=== PATIENT | female | born 1990 | race Caucasian/White ===

== ENCOUNTER 2017-04-29 19:42 | Inpatient (IN) | payer OTHER, MEDICAID ==
[2017-04-29] MEDS ORDERED: Penicillin G 5 Million Unit Vial IVPB ONE (21:04)
[2017-04-29 21:14] VITALS: BMI 27.8
[2017-04-29] MEDS ORDERED: Lactated Ringer's 1,000 ML IV SCH (21:15)
[2017-04-29] MEDS ORDERED: Nalbuphine 20 mg/ml Inj (1 ml) IVP PRN (21:15)
[2017-04-29 21:40] LABS: BASO % 0.3 % (0.0-2.0); EOS # 0.2 K/uL (0.0-0.7); EOS % 1.6 % (0.0-4.0); LYMPH % 21.8 % (20.0-40.0); MEAN CELL VOLUME 77.9 fL (81.0-99.0); MEAN CORPUSCULAR HEMOGLOBIN 25.5 pg (27.0-31.0); MEAN CORPUSCULAR HGB CONC 32.7 g/dL (33.0-37.0); MEAN PLATELET VOLUME 8.5 fL (7.2-11.7); MONO # 1.5 K/uL (0.0-0.8); MONO % 10.8 % (0.0-10.0); NRBC % 0.1 % (0.0-2.0); RED CELL DISTRIBUTION WIDTH 14.7 % (11.5-14.5); WHITE BLOOD COUNT 13.8 K/uL (4.8-10.8)
[2017-04-29 21:47] LABS: CHLORIDE 103 mmol/L (98-107); SODIUM 138 mmol/L (132-148)
[2017-04-29 21:49] LABS: GFR AFRICAN-AMERICAN > 60
[2017-04-29 21:50] LABS: ALB/GLOB RATIO 1.2 (1.0-2.1); ALKALINE PHOSPHATASE 145 U/L (38-126); ALT/SGPT 27 U/L (9-52); AST/SGOT 24 U/L (14-36); BILIRUBIN,TOTAL 0.4 mg/dL (0.2-1.3); BLOOD UREA NITROGEN 6 mg/dL (7-17); CALCIUM 9.3 mg/dl (8.6-10.4); CARBON DIOXIDE 21 mmol/L (22-30); GLUCOSE,RANDOM 72 mg/dL (65-105); TOTAL PROTEIN 6.9 g/dL (6.3-8.3)
[2017-04-29 21:58] LABS: RBC URINE 3 /hpf (0-3); URINE BILIRUBIN NEGATIVE (NEGATIVE); URINE BLOOD 2+ (NEGATIVE); URINE COLOR Straw (YELLOW); URINE GLUCOSE (UA) NORMAL (Normal); URINE KETONE NEGATIVE (NEGATIVE); URINE LEUKOCYTE ESTERASE 1+ Leu/uL (Negative); URINE PROTEIN NEGATIVE (NEGATIVE); URINE UROBILINOGEN NORMAL mg/dL (0.2-1.0); WBC URINE 14 /hpf (0-5)
[2017-04-29] MEDS ORDERED: Oxytocin 20 units in LR 2,000 ML IV ONE (23:03)
[2017-04-29] MEDS ORDERED: Lidocaine 2% Inj (20ml) ONE (23:25)
[2017-04-29] MEDS ORDERED: Oxytocin 10 Units/ml Inj ONE (23:32)
[2017-04-29] MEDS ORDERED: Benzocaine/Menthol 20%-0.5% Topical Spray (60 ml) TOP PRN (23:49)
[2017-04-29] MEDS ORDERED: Oxycodone/Acetaminophen 5/325 mg Tab PO PRN ×2 (23:49)
[2017-04-30] MEDS ORDERED: Penicillin G Potassium 2.5 MU in Dextrose 5% In Water 50 ML IV SCH (01:00)
[2017-04-30 07:44] LABS: BASO # 0.1 K/uL (0.0-0.2); BASO % 0.4 % (0.0-2.0); EOS # 0.2 K/uL (0.0-0.7); EOS % 0.9 % (0.0-4.0); HEMATOCRIT 31.1 % (34.0-47.0); LYMPH % 11.9 % (20.0-40.0); MEAN CELL VOLUME 77.9 fL (81.0-99.0); MEAN CORPUSCULAR HEMOGLOBIN 25.6 pg (27.0-31.0); MEAN CORPUSCULAR HGB CONC 32.9 g/dL (33.0-37.0); MEAN PLATELET VOLUME 8.9 fL (7.2-11.7); MONO # 1.7 K/uL (0.0-0.8); MONO % 10.4 % (0.0-10.0); RED CELL DISTRIBUTION WIDTH 14.7 % (11.5-14.5); WHITE BLOOD COUNT 16.5 K/uL (4.8-10.8)
[2017-04-30] MEDS: Multiple Vitamins Tab PO SCH (09:39)
--- NOTE | 2017-04-30 12:01 | OBDS ---
DELIVERY PERSONNEL Nurse Manufacturing Job Titles Certified: N/A Delivery Doctor: Idania Wiseman MD Scrub Nurse: N/A Scenic Arts Supervisor: Michael Montana RN Anesthesiologist: N/A Disbursing Agent: N/A Resident: N/A MATERNAL INFORMATION Delivery Anesthesia: None Medications in Delivery: PITOCIN 20 UNITS IN 1L; METHERGINE 1 AMP IM Provider Comments: patient rapidly progressed to fully of a male infant from ED position.Body and shoulders delivered without difficulty Cord clamped and cut.Blood stained amniotic fluid noted cord blood collected. Placenta spontaneously delivered. Uterus noted to be boggy.Im methergine 0.2mg given after which uterus noted to firm up.First degre e perineal laceration repaired with 2-0 chromic.1000MCG cytotec placed rectally Fundus frm Bleeding average Patient stable apgars 9/9 at 1 and 5min of life LABOR SUMMARY EDC: 05/02/2017 00:00 No. Babies in Womb: 1 LABOR INFORMATION Group B Beta Strep: Positive (Annotations: 04/09/2017) MEMBRANES Membranes Rupture Method: Artificial Amniotic Fluid Color: Clear Amniotic Fluid Amount: Small STAGES OF LABOR Stage 3 hrs: 0 Stage 3 min: 3 VAGINAL DELIVERY Episiotomy: None Laceration Extension: First Degree Laceration Type: Perineal Laceration Repair: Yes Laceration Repair Note: first degree perineal laceration reapired with 2-0 chormic Initial Vag Sponge Count: 10+1 Final Vag Sponge Count: 10+1 Initial Vag Sharps Count: 1 Final Vag Sharps Count: 1 Sponge Count Correct: Yes; Vaginal Sweep Performed Sharps Count Correct: Yes Count Comment: ALL ACCOUNTED FOR BABY A INFORMATION Infant Delivery Date/Time: 04/29/2017 23:14 Method of Delivery: Vaginal Born in Route : No : N/A Forceps: N/A Vacuum Extraction: N/A Shoulder Dystocia : No SHOULDER DYSTOCIA BABY A Infant Delivery Date/Time: 04/29/2017 23:14 PRESENTATION/POSITION BABY A Presentation: Cephalic Cephalic Presentation: Vertex Vertex Position: Left Occipital Anterior Breech Presentation: N/A PLACENTA INFORMATION BABY A Placenta Delivery Time : 04/29/2017 23:17 Placenta Method of Delivery: Spontaneous Placenta Status: Delivered SCORES BABY A Heart Rate 1 min: >100 bpm Resp Effort 1 min: Good Cry Reflex Irritability 1 min: Cough or Sneeze or Pulls Away Muscle Tone 1 min: Active Motion Color 1 min: Body [place], Extremities Blue Resuscitation Effort 1 min: Tactile Stimulation SCORE 1 MIN: 9 Heart Rate 5 min: >100 bpm Resp Effort 5 min: Good Cry Reflex Irritability 5 min: Cough or Sneeze or Pulls Away Muscle Tone 5 min: Active Motion Color 5 min: Body [place], Extremities Blue Resuscitation Effort 5 min: Tactile Stimulation SCORE 5 MIN: 9 INFANT INFORMATION BABY A Gestational Age at Delivery: 39.4 Outcome : Liveborn Condition : Stable Infant Sex: Male IDENTIFICATION/MEDS BABY A ID Band Number: [id number] ID Band Location: Left Leg; Left Arm Sensor Applied: Yes Sensor Number: [id number] Sensor Location : Cord Clamp Vitamin K Given : Not Given Erythromycin Given: Not Given WEIGHT/LENGTH BABY A Infant Birthweight (gms): 3195 Infant Weight (lb): 7 Weight (oz): 1 Length Inches: 19.00 Length cms: 48.3 CORD INFORMATION BABY A No. Cord Vessels: 3 Nuchal Cord : N/A Cord Blood Taken: Yes Suction: Mouth; Nose ASSESSMENT BABY A Complications: None Physical Findings at Delivery: Within Normal Limits Respirations: Appears Normal Operator Maintainer/ALS Called : No Care By: Cricket MONTGOMERY RN Transferred To: Nursery
--- NOTE | 2017-04-30 12:07 | OBADHP ---
Datetime: 04/29/2017 21:11 IP Chief Complaint Other: vaginal spotting Admit Comment, IP Provider: Dr Wiseman private pateint at 39+weeks came with c/o ctxs started few hrs ago and c/o vaginal spotting, no lof,+fm. obhx 2 x pmh den med pnv all nkda psh den soch den ve 60/-2 a/p at 39+weeks in labor admit to l_d npo/ivf labs pain mangement cont onesimo and efm cytotec 50 mcg gbs prophylaxsis anticipate Pelvic Type - PN: Adequate Extremities - PN: Normal Abdomen - PN: Normal Back - PN: Normal Breast - PN: Normal Lungs - PN: Normal Heart - PN: Normal Thyroid - PN: Normal Neurologic - PN: Normal HEENT - PN: Normal General - PN: Normal FHR - Baseline A Provider: 150 Contraction Comments Provider: irrg IP Hx Assessment: The History has been Reviewed and is Current Vital Signs Provider: Reviewed; Within Normal Limits IP Chief Complaint: Uterine contractions NICHD Variability Prov Fetus A: Moderate 6-25bpm NICHD Accel Fetus A IP Provider: [id number] FHR Category Provider Fetus A: Category I Dilatation, Provider: 2 Effacement, Provider: 70 Station, Provider: -2 Genitourinary Exam: Normal DTRs - PN: Normal EGA AdmitDate IP: 39.4 IP Adm Impression: , intrauterine ; Active labor IP Admit Plan: Admit to unit; Initiate labor protocol
--- NOTE | 2017-04-30 13:17 | OBPPN ---
Datetime: 04/30/2017 13:14 PP Pain Prov: Within normal limits PP Nausea Prov: Denies PP Flatus Prov: Yes PP BM Prov: No PP Breasts Prov: Normal PP Heart Prov: Normal PP Lungs Prov: Normal PP Abdomen/Uterus Prov: Normal PP Lochia Prov: Normal PP CVA Tenderness Prov: Normal PP Extremities Prov: Normal PP C/S Incision Prov: Not Applicable PP Progress Prov: Normal PP Impression Prov: Normal progression PP Plan Prov: Continue present management PP Progress Note Prov: Patienbt s/p vagina;delivery ppd1 plan-contineu routine postpartumcare Vital Signs Provider PP: Reviewed; Within Normal Limits
[2017-05-01] MEDS: Multiple Vitamins Tab PO SCH (10:21)
[2017-05-01 22:06] VITALS: BP 100/70; PULSE 80; RESP 18; TEMP 97.8; O2SAT 99
== END 2017-05-01 13:50 | disposition home or self-care (01) | DRG 775 ==
LOC: C.EROB 19:42 → C.4D 21:04 → C.4M 04-30 01:20
PROVIDERS: ADMIT Student in an Organized Health Care Education/Training Program; ATTEND Student in an Organized Health Care Education/Training Program
PROC: 10E0XZZ Delivery of Products of Conception, External Approach (ICD-10-PCS; principal; 2017-04-29)
PROC: 10907ZC Drainage of Amniotic Fluid, Therapeutic from Products of Conception, Via Natural or Artificial Opening (ICD-10-PCS; 2017-04-29)
PROC: 0HQ9XZZ Repair Perineum Skin, External Approach (ICD-10-PCS; 2017-04-29)
DX: O62.2 Other uterine inertia (principal); O99.824 Streptococcus B carrier state complicating childbirth; O70.0 First degree perineal laceration during delivery; Z3A.39 39 weeks gestation of pregnancy; Z37.0 Single live birth